=== PATIENT | male | born 1990 | race Caucasian/White ===

== ENCOUNTER 2017-02-06 00:27 | Emergency (ER) | payer BC ==
[~2017-02-06] VITALS: Ht 165.1 cm; Wt 65.8 kg
[~2017-02-06 00:27] MED LIST: FLOMAX0.4 MG PO; PERCOCET 5/31 TABLET PO; [UNRECOGNIZED DRUG - REMARK]; [UNRECOGNIZED DRUG - REMARK]; [UNRECOGNIZED DRUG - REMARK]
[2017-02-06 02:07] LABS: INFLUENZA A VIRAL ANTIGEN NEGATIVE; INFLUENZA B VIRAL ANTIGEN NEGATIVE
[2017-02-06 02:10] LABS: EOSINOPHIL (%) 0.8 % (0-5); EOSINOPHIL COUNT 0.1 K/uL (0-0.3); HEMATOCRIT 42.7 % (38.0-50.0); IMMATURE GRANULOCYTE (%) 0.4 % (0.0-0.7); IMMATURE GRANULOCYTE COUNT 0.1 K/uL; INSTRUMENT ABS NEUTROPHIL CT 7.4 K/uL; LYMPHOCYTE COUNT 2.9 K/uL (1.0-2.8); MCH 30.2 PG (29.0-34.0); MCHC 34.2 G/DL (30.0-36.0); MCV 88.2 FL (86-99); MEAN PLAT.VOLUME 9.8 uM^3 (9.0-12.4); MONOCYTE (%) 9.5 % (3-12); MONOCYTE COUNT 1.1 K/uL (0-0.8); NEUTROPHIL (%) 64.2 % (45-76); NEUTROPHIL COUNT 7.4 K/uL (1.8-6.4); PLATELET COUNT 216 K/uL (156-360); RBC DIS.WIDTH-CV 12.1 % (11.8-14.6); RBC DIS.WIDTH-SD 39.2 % (39-53); RED BLOOD COUNT 4.84 M/uL (4.00-5.50); WHITE BLOOD COUNT 11.5 K/uL (4.1-10.2)
[2017-02-06 02:18] LABS: CHLORIDE 105 mEq/L (99-109); POTASSIUM 3.1 mEq/L (3.7-5.4); SODIUM 140 mEq/L (136-147)
[2017-02-06 02:20] LABS: GLUCOSE 103 mg/dL (70-99)
[2017-02-06 02:22] LABS: ANION GAP 14 MEQ/L (2-14)
[2017-02-06 02:24] LABS: GFR ESTIMATE (CALCULATED) > 59 mL/min/
[2017-02-06 02:25] LABS: UREA NITROGEN (BUN) 12 mg/dL (9-23)
[2017-02-06] MEDS ORDERED: PROAIR HFA8.5 GM IH (02:40)
[2017-02-06 02:47] VITALS: BP 128/92
== END 2017-02-06 02:48 | disposition home or self-care (01) ==
LOC: EME 00:27
PROVIDERS: Emergency Medicine
DX: J04.0 Acute laryngitis (principal); B34.9 Viral infection, unspecified; E87.6 Hypokalemia; Z88.1 Allergy status to other antibiotic agents; J45.909 Unspecified asthma, uncomplicated; I10 Essential (primary) hypertension
CPT/HCPCS: 71020; 80048; 85025; 87502; 93005; 94640; 99281; 99284